=== PATIENT | male | born 1970 | race Two or more races ===

== ENCOUNTER 2022-10-18 16:32 | Emergency (ER) | payer OTHER ==
[~2022-10-18] VITALS: Ht 177.8 cm; Wt 104.1 kg
[2022-10-18] MEDS ORDERED: htn med PO (16:34)
[2022-10-18] MEDS: BACLOFEN 10 MG TABLET PO ONE (17:41)
[2022-10-18] MEDS: ACETAMINOPHEN/CODEINE 300-30 MG TABLET PO ONE (17:41)
[2022-10-18] MEDS: KETOROLAC TROMETHAMINE 60 MG/2 ML VIAL IM ONE (17:42)
[2022-10-18 18:30] VITALS: BP 134/73
[2022-10-18] MEDS ORDERED: BACL10TA PO (18:59)
[2022-10-18] MEDS ORDERED: ACET-2080 PO (18:59)
[2022-10-18] MEDS ORDERED: IBUP-1554 PO (18:59)
== END 2022-10-18 19:09 | disposition home or self-care (01) ==
LOC: EMS 16:39
DX: S13.4XXA Sprain of ligaments of cervical spine, initial encounter (principal); I10 Essential (primary) hypertension; X58.XXXA Exposure to other specified factors, initial encounter; Y93.89 Activity, other specified; Y92.89 Other specified places as the place of occurrence of the external cause; Y99.8 Other external cause status
CPT/HCPCS: 99283; 72040; 96372; J1885